=== PATIENT | female | born 2000 | race Asian ===

== ENCOUNTER 2023-06-14 14:29 | Emergency (ER) | payer MEDICAID ==
[~2023-06-14] VITALS: Ht 157.5 cm; Wt 95.5 kg
[2023-06-14 14:34] VITALS: TEMP 97.9
[2023-06-14] MEDS ORDERED: IBUPROFEN 600 MG TABLET PO ONE (16:00)
[2023-06-14] MEDS ORDERED: ACETAMINOPHEN/CODEINE 300-30 MG TABLET PO ONE (16:00)
[2023-06-14] MEDS ORDERED: IBUP-1554 PO (16:30)
[2023-06-14] MEDS ORDERED: ACET-2080 PO (16:30)
[2023-06-14 16:59] VITALS: BP 114/73; PULSE 59; RESP 16
== END 2023-06-14 17:03 | disposition home or self-care (01) ==
LOC: EMS 14:32
DX: S93.402A Sprain of unspecified ligament of left ankle, initial encounter (principal); X58.XXXA Exposure to other specified factors, initial encounter; Y93.89 Activity, other specified; Y92.89 Other specified places as the place of occurrence of the external cause; Y99.8 Other external cause status
CPT/HCPCS: 99283